=== PATIENT | female | born 1970 | race Caucasian/White ===

== ENCOUNTER 2018-03-12 20:28 | Emergency (ER) | payer OTHER ==
[~2018-03-12 20:28] MED LIST: Iopamidol 370 76% 100 ML VIAL ONE; Sodium Chloride 0.9% 1,000 ML BAG ONE
[2018-03-12 21:00] LABS: #Basophils 0.1 thou/uL (0.0-0.2); #Eosinphils 0.4 thou/uL (0.0-0.7); #Lymphocytes 2.9 thou/uL (1.20-3.40); #Monocytes 0.5 thou/uL (0.11-0.59); %Basophils 1.7 % (0.0-1.0); %Eosinophils 5.7 % (0.0-10.0); %Lymphocytes 42.5 % (21.0-51.0); %Monocytes 6.6 % (0.0-10.0); %Neutrophils 43.5 % (42.0-75.0); Hemoglobin 14.3 g/dL (12.0-16.0); INR-International Normal Ratio 0.9; Mean Corpuscular HGB CONC 34.9 g/dL (32.0-36.0); Mean Corpuscular Hemoglobin 31.6 pg (27.0-31.0); Mean Corpuscular Volume 90.5 fL (78.0-98.0); Mean Platelet Volume 9.8 fL (7.4-10.4); Platelet Count 145 thou/uL (130-400); Prothrombin Time 12.4 SEC (12.0-14.7); RBC Distribution Width 11.4 % (11.5-14.5); Red Blood Cell (RBC) Count 4.54 mill/uL (4.20-5.40); White Blood Cell (WBC) Count 6.8 thou/uL (4.8-10.8)
[2018-03-12 21:06] LABS: PTT 21.9 SEC (22.9-36.1)
[2018-03-12 21:11] LABS: ALT (SGPT) 18 U/L (8-55); AST (SGOT) 21 U/L (5-34); Albumin 4.3 g/dL (3.5-5.0); Alkaline Phosphatase 69 U/L (40-150); Anion Gap 18 mmol/L (10-20); BUN (Urea Nitrogen) 14 mg/dL (7.0-18.7); Bilirubin, Total 0.4 mg/dL (0.2-1.2); Calc. Creatinine Clearance 0 mL/min (70-130); Calcium 9.3 mg/dL (7.8-10.44); Carbon Dioxide 19 mmol/L (22-29); Chloride 107 mmol/L (98-107); Estimated GFR-MDRD 58; Globulin 2.5 g/dL (2.4-3.5); Glucose 105 mg/dL (70-105); Potassium 3.4 mmol/L (3.5-5.1); Protein, Total 6.8 g/dL (6.0-8.3); Sodium 141 mmol/L (136-145)
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
[2018-03-12 23:02] LABS: CKMB 1.4 ng/mL (0-6.6); Troponin I Less than 0.010 ng/mL (< 0.028)
== END 2018-03-12 23:30 | disposition left against medical advice (07) ==
LOC: MADERS 20:28
DX: S16.1XXA Strain of muscle, fascia and tendon at neck level, initial encounter (principal); R94.31 Abnormal electrocardiogram [ECG] [EKG]; R73.03 Prediabetes; F41.0 Panic disorder [episodic paroxysmal anxiety]; V86.99XA Unspecified occupant of other special all-terrain or other off-road motor vehicle injured in nontraffic accident, initial encounter
CPT/HCPCS: 70450; 71260; 72125; 74177; 80053; 82553; 84484; 85025; 85610; 85730; 93005; 96360; 96361; J7050